=== PATIENT | female | born 1980 | race Caucasian/White ===

== ENCOUNTER 2024-09-15 00:31 | Day surgery (SDC) | payer OTHER, SELFPAY ==
[2024-09-12 12:32] VITALS: BMI 19.1
--- NOTE | 2024-09-12 12:32 | PC.NURSE ---
Report to the Outpatient Waiting Room, entrance under the green pavilion located off [facility], at time _1130_ on date _[phone]_. Planned Procedure Time: _130pm_.? Time changes happen often and if your time is changed the preop area will call you the afternoon before. - You and your visitor will be asked to self-screen and do not enter if you have any COVID symptoms. Please call surgeon if you need to reschedule. - A mask is optional within the hospital at this time. Patients may have clear liquids (water, carbonated beverages, clear teas, apple juice) until 3 hours prior to surgery with a maximum of 20 ounces. - No food from midnight until time of surgery and no smoking, or chewing tobacco (or any form of nicotine). No chewing gum, candy or mints. Take only the following medications with a SIP of water on the morning of surgery: ___None__ DO NOT STOP ANY OF YOUR OTHER PRESCRIPTION MEDICATIONS PRIOR TO SURGERY EXCEPT THE FOLLOWING Hold all vitamins and supplements for 3 days per anesthesiologist. Medications to discontinue per physician Date to take last dose Please no make-up, nail german, hairspray, perfume, deodorant, or body powder the day of surgery.? No jewelry (including any body piercings) or valuables the day of surgery, leave them at home.? Please take a shower or bath the night before, or the morning of, surgery with an antibacterial soap.? Wear comfortable, loose fitting clothing. - Jewelry must be removed prior to entering the operating room.? Rings and piercings that are not removed may be cut off. - The hospital will not accept responsibility for valuables.? - Please leave all valuables, including medications, at home the day of surgery. If you are going home after surgery, a licensed sales warehouse driver must drive you home.? - NO public transportation without another adult if you receive anesthesia. - We recommend that an adult stay with you for 24 hours following discharge. - We also recommend that you do not drive, make important decision, drink alcoholic beverages, or take any drugs that were not prescribed by your health care provider for at least 24 hours after your discharge time. Follow any additional instructions given to you from your surgeon. Telephone instructions given to __Amanda___and asked if any additional questions and then verbalized understanding. Patient advised to call surgeon office or pre surgery nurse liaison [phone] if any additional questions.
[2024-09-15] VITALS (16 sets, daily range): BP systolic 97–126; BP diastolic 53–82; PULSE 64–88; RESP 12–16; TEMP 36.2–36.8; O2SAT 98–100; BMI 19.4
--- OUTSIDE RECORDS SUMMARY | 2024-09-15 00:42 | XMS_ITS | Encounter Summary ---
Author Organization [facility] Address [address] [place] [id number] Phone Care Team Providers Care Car Hostler Name Role Phone Bennett Medina MD Primary Care Provider [phone] Reason for Visit * Reason Onset Date Comments Establish Care 06/25/2020 Encounter Details Date Type Department Care Team (Late st Contact Info) Description [facility] [address] [place] [address] Stephanie Chu MD [address] [place] [address] [address] [place], [place] [address] Establish Care Social History Tobacco Use Types Packs/Day Years Used Date Smoking Tobacco: Every Day Cigarettes Smokeless Tobacco: Never Alcohol Use Standard Drinks/Week Comments No 0 (1 standard drink = 0.6 oz pur e alcohol) Comments No Sex and Gender Information Value Date Recorded Sex Assigned at Not on file 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 Chu will take her on as a patient. She states she was told Dr. Chu was one of the only providers in the area to prescribe Suboxone. She takes it daily, and needs someone that prescribes it. TRONIC SYSTEM ENGINEER documented in this encounter Plan of Treatment Not on file documented as of this encounter Visit Diagnoses Not on filedocumented in this encounter Care Teams Car Hostler Relationship Specialty Start Date End Date Bennett Medina MD PCP - General Adult Medicine 11/08/14 documented as of this encounter
--- OUTSIDE RECORDS SUMMARY | 2024-09-15 00:43 | XMS_ITS | Clinical Summary ---
Author Organization [facility] Address [address] [place] [address] Phone Care Team Providers Care Air Turning Machine Feeder Name Role Phone Bennett Medina MD Primary Care Provider [phone] Allergies No known active allergies Medications HYDROcodone-acet aminophen (NORCO) 10-325 mg tablet Take 1 tablet by mouth Active Social History Tobacco Use Types Packs/Day Years Used Date Smoking Tobacco: Every Day Cigarettes Smokeless Tobacco: Never Alcohol Use Standard Drinks/Week Comments No 0 (1 standard drink = 0.6 oz pur e alcohol) Comments No Sex and Gender Information Value Date Recorded Sex Assigned at Not on file 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 Gender Identity Not on file Sexual Orientation Not on file Last Filed Vital Signs Vital Sign Reading Time Taken Comments Blood Pressure 101/62 11/09/2014 12:35 PM CDT Pulse 88 11/09/2014 12:35 PM CDT Temperature - - Respiratory Rate - - Oxygen Saturation - - Inhaled Oxygen Concentration - - Weight 55.3 kg (122 lb) 03/12/2015 11:39 AM PROPERTY INSURANCE AGENT Height 167.6 cm (5' 6) 03/12/2015 11:39 AM PROPERTY INSURANCE AGENT Body Mass Index 19.69 03/12/2015 11:39 AM PROPERTY INSURANCE AGENT Plan of Treatment Health Maintenance Due Date Last Done Comments MMR Vaccines (1 of 1 - Stand andrea series) 1981 Depression Screening 1992 Varicella Vaccines (1 of 2 - 13+ 2-dose series) 1993 DTaP/Tdap/Td Vaccines (1 - Tdap) 08/03/1999 Hepatitis B Vaccines (1 of 3 - 19+ 3-dose series) 08/03/1999 Pap Smear 2001 Cervical Cancer Screening 2010 HPV/Co-Testing 2010 Screening for Diabetes 08/03/2015 Breast Cancer Screening 2020 COVID-19 Vaccine (2023-2 5 season) 2023 Influenza Vaccine (Season Ended) 2024 HIB Vaccines Aged Out No longer eligi ble based on patient's age to complete this topic HPV Vaccines Aged Out No longer eligi ble based on patient's age to complete this topic Hepatitis A Vaccines Aged Out No long er eligible based on patient's age to complete this topic IPV Vaccines Aged Out No longer eligi ble based on patient's age to complete this topic Meningococcal B Vaccine Aged Out No l onger eligible based on patient's age to complete this topic Meningococcal Vaccine (ACWY) Aged Out No longer eligible based on patient's age to complete this topic Pneumococcal Vaccines Aged Out No ashli silverio eligible based on patient's age to complete this topic Rotavirus Vaccines Aged Out No longer eligible based on patient's age to complete this topic [place] Care Teams Air Turning Machine Feeder Relationship Specialty Start Date End Date Bennett Medina MD PCP - General Adult Medicine 11/08/14
--- OUTSIDE RECORDS SUMMARY | 2024-09-15 00:43 | XMS_ITS | Data Portability ---
Author Organization [facility], [address] [place] [address] [place] ([place]) Address [address] [place] [address] Care Team Providers Care Manager Managed Care Name Role Phone WILBUR, DAVID Primary Care Provider Assessment No assessment recorded. Plan of Treatment Reminders Order Date Submit Date Provider Last Modified By Organization Details Last Modified Time Details Appointments None recorded. Lab arthritis panel 2023 [facility], [address] [place] [address], [id number], 5 19:30:28 Referral None recorded. Procedures None recorded. Surgeries None recorded. Imaging None recorded. Medication Orders lamotrigine 100 mg tablet 2023 024 [address], [address], [place], [id number], 4 14:35:27 meloxicam 15 mg tablet 2023 024 AJ[address] Sal[address] [facility], [address], [place], [id number], 4 14:34:04 Patient TargetsNo targets recorded. Patient Instructions Encounter Date Encounter Id Patient Instructions Last Modified By Organization Details Last Modified Time 12/24/2023 [id number] Start daily anti-inflammatory Get arthritis panel and call with report, treat/refer as indicated Refill Lamotrigine today Patient given list of Mental Health professionals in our area, she will call to find new provider 30 minutes spent with patient [email or web address] Not available 12/24/2023 19:36:53 Reason for Referral None Reported. Results Created Date Observation Date Name Description Value Unit Range Abnormal Flag Note LastModifiedBy Organization Detail LastModifiedTime 07/14/1907/13/2024 arthr itis panel uric acid 4.2 mg/dL 2.3-6. 6 Not Available [facility] [address] [place] [address], [id number], 07/18/2024 14:08:39 07/14/19 25 07/13/2024 arthr itis panel sed rate 6 mm/HR 0 - 20 Not Available [facility] [address] [place] [address], [id number], 07/18/2024 14:08:39 07/14/19 25 07/13/2024 arthr itis panel rf <3.5 IU/mL <3.5-1 4 Not Available [facility] [address] [place] [address], [id number], 07/18/2024 14:08:39 07/14/19 25 07/13/2024 arthr itis panel ccp antibody, IgG <0.54 U/mL <=4.9 Not Available [facility] [address] [place] [address], [id number], 07/18/2024 14:08:39 07/14/19 25 07/18/2024 arthr itis panel arthritis panel Not Available [facility] [address] [place] [address], [id number], 07/18/2024 14:08:39 07/14/19 25 07/18/2024 arthr itis panel ANNIE screen NEGATI VE negati ve Perfo rmed by Bio-R ad enzym e immun oassa y Not Available [facility] [address] [place] [address], [id number], 07/18/2024 14:08:39 07/14/19 25 07/13/2024 arthr itis panel arthritis panel Not Available [facility] [address] [place] [address], [id number], 07/13/2024 20:34:42 07/14/19 25 07/13/2024 arthr itis panel uric acid 4.2 mg/dL 2.3-6. 6 Not Available [facility] [address] [place] [address], [id number], 07/13/2024 20:34:42 07/14/19 25 07/13/2024 arthr itis panel sed rate 6 mm/HR 0 - 20 Not Available [facility] [address] [place] [address], [id number], 07/13/2024 20:34:42 07/14/19 25 07/13/2024 arthr itis panel ANNIE screen PENDIN G Not Available [facility] [address] [place] [address], [id number], 07/13/2024 20:34:42 07/14/19 25 07/13/2024 arthr itis panel rf <3.5 IU/mL <3.5-1 4 Not Available [facility] [address] [place] [address], [id number], 07/13/2024 20:34:42 07/14/19 25 07/13/2024 arthr itis panel ccp antibody, IgG <0.54 U/mL <=4.9 Not Available [facility] [address] [place] [address], [id number], 07/13/2024 20:34:42 07/14/19 25 07/13/2024 arthr itis panel arthritis panel Not Available [facility] [address] [place] [address], [id number], 07/13/2024 19:47:51 07/14/19 25 07/13/2024 arthr itis panel uric acid 4.2 mg/dL 2.3-6. 6 Not Available [facility] [address] [place] [address], [id number], 07/13/2024 19:47:51 07/14/19 25 07/13/2024 arthr itis panel sed rate 6 mm/HR 0 - 20 Not Available [facility] [address] [place] [address], [id number], 07/13/2024 19:47:51 07/14/19 25 07/13/2024 arthr itis panel ANNIE screen PENDIN G Not Available [facility] [address] [place] [address], [id number], 07/13/2024 19:47:51 07/14/19 25 07/13/2024 arthr itis panel rf PENDIN G Not Available [facility] [address] [place] [address], [id number], 07/13/2024 19:47:51 07/14/19 25 07/13/2024 arthr itis panel ccp antibody, IgG PENDIN G Not Available [facility] [address] [place] [address], [id number], 07/13/2024 19:47:51 07/14/19 25 07/13/2024 arthr itis panel arthritis panel Not Available [facility] [address] [place] [address], [id number], 07/13/2024 19:30:28 07/14/19 25 07/13/2024 arthr itis panel uric acid PENDIN G Not Available [facility] [address] [place] [address], [id number], 07/13/2024 19:30:28 07/14/19 25 07/13/2024 arthr itis panel sed rate 6 mm/HR 0 - 20 Not Available [facility] [address] [place] [address], [id number], 07/13/2024 19:30:28 07/14/19 25 07/13/2024 arthr itis panel ANNIE screen PENDIN G Not Available [facility] [address] [place] [address], [id number], 07/13/2024 19:30:28 07/14/19 25 07/13/2024 arthr itis panel rf PENDIN G Not Available [facility] [address] [place] [address], [id number], 07/13/2024 19:30:28 07/14/19 25 07/13/2024 arthr itis panel ccp antibody, IgG PENDIN G Not Available [facility] [address] [place] [address], [id number], 07/13/2024 19:30:28 08/24/19 25 08/23/2024 MAMMO , scree ru, tomos ynthe sis, bilat eral This is a summar y report . The comple te report is availa ble in the patien t's medica l record . If you cannot access the medica l record , please contac t the sendusama ulloa organi rosa for a detail ed fax or copy. [facility] [address] [place] [address] Examin ation: BILATE RAL SCREEN ING MAMMOG MIRZA Exam Date: 08/24/19 3:07 PM Access ion: [id number] Clinic al Indica tion: 44 years of age female baseli ne screen ing. No person al or family histor y of breast cancer . Compar kari: Mammog mina dating back to None. Techni que: Digita l CC and MLO views. Tomosy nthesi s imagin g acquis ition. Study read with the assist ance of a Whimseybox er-aid ed detect ion system . Tissue densit y:The breast s are hetero geneou sly dense, which may obscur e small masses . Findin gs: Simila r hetero geneou sly dense fibrog landul ar patter n bilate rally. Benign calcif icatio ns. No enlarg ed lymph nodes. No suspic ious masses , malign ant appear ing calcif icatio ns, skin thicke ru or other abnorm alitie s are presen t. No findin gs of concer n with comput er-ass isted softwa re. IMPRES KATELIN: No featur es to sugges t malign kim. In the absenc e of clinic al sympto ms, return for annual screen ing due in one year. Recomm endati on: Routin e Screen ing Bilate ral. Assess ment: ACR BI-RAD S 2 - BENIGN FINDIN G(S) Ordere d By: LACY OJEDA KI Electr onical ly Signed By: Lacy Vega DO on 08/24/19 5:41 PM Interp reted By: Lacy Vega DO, 08/24/19 5:34 PM [email or web address] [facility] [address] [place], [address], 08/24/2024 12:23:16 Result Notes None recorded. Problems Name Problem SNOMED Code Status Onset Date Resolution Date Notes Provider Name and Address Organization Details Recorded Time Pain of bilateral hands 10307798940180 109 Active 2023 Mary William APRN, RESERVE OPERATOR [address] [place] [address], [phone] [place] [address] 14:32:57 Mood swings 26081003 Active 2023 Mary William APRN, RESERVE OPERATOR [address] [place] [address], [phone] [place] [address] 4 14:34:49 Problem Notes None recorded. Procedures Surgical History Date Name Laterality Status Provider Name and Address Organization Details Recorded Time Tonsillectomy completed [facility] 12/24/2023 14:11:14 Laparoscopy completed [facility] 12/24/2023 14:11:29 Oral surgery procedure completed [facility] 12/24/2023 14:11:39 Imaging Results None recorded. Procedure Notes None recorded. Medical Equipment None Reported. Allergies No known drug allergies Medications Name Sig Start Date Stop Date Status Note LastModified by Organization Details LastModified Time quetiapine 25 mg tablet TAKE 1 TABLET BY MOUTH ONCE DAILY AT BEDTIME active Not Available Not Available No t Available meloxicam 15 mg tablet Take 1 tablet every day by oral route for 30 days. 2023 active Not Available Not Available Not Avai lable dextroamphe tamine-amph etamine 10 mg tablet TAKE 1 TABLET BY MOUTH EVERY AFTERNOON active Not Available Not Available No t Available dextroamphe tamine-amph etamine 30 mg tablet TAKE 1 TABLET BY MOUTH EVERY MORNING active Not Available Not Available No t Available buspirone 10 mg tablet TAKE 2 TABLETS BY MOUTH THREE TIMES DAILY 12/23 completed Not Available Not Available Not Available hydroxyzine HCl 10 mg tablet TAKE 1 TABLET BY MOUTH THREE TIMES DAILY NEEDED FOR ITCHING 12/23 completed Not Available Not Available Not Available lamotrigine 100 mg tablet Take 1 tablet every day by oral route for 30 days. 2023 active Not Available Not Available Not Avai lable buspirone 15 mg tablet TAKE 1 TABLET BY MOUTH THREE TIMES DAILY active Not Available Not Available No t Available buprenorphi ne 8 mg-naloxone 2 mg sublingual film DISSOLVE 2 AND 1/2 FILMS UNDER THE TONGUE EVERY DAY FOR 15 DAYS active Not Available Not Available No t Available Trintellix 5 mg tablet TAKE 1 TABLET BY MOUTH ONCE DAILY WITH A 10MG TABLET TO EQUAL 15MG 12/23 completed Not Available Not Available Not Available Trintellix 10 mg tablet TAKE ONE-HALF TABLET BY MOUTH DAILY 12/23 completed Not Available Not Available Not Available Trintellix 20 mg tablet TAKE 1 TABLET BY MOUTH DAILY active Not Available Not Available No t Available Vitals Date Recorded Body height Body mass index (BMI) Body weight Body temperature Oxygen saturation Oxygen saturation in Arterial blood by Pulse oximetry Heart rate Systolic blood pressure Diastolic blood pressure Provider Name and Address Organization Details Last Updated DateTime 4 167.64 cm 20.3 kg/m2 30560.6 4 g 98.4 [degF] 98 % 98 % 81 /min 110 mm[Hg] 70 mm[Hg] Krystyna Petty [facility] 4 14:07:59 Social History None recorded. Functional Status None recorded. Mental Status None recorded. Family History Relationship Description Onset Age of this Age Resolved Age Notes LastModified by Organization Details LastModified Time Maternal Grandmother Malignant neoplasm of lung banner Not available 2023 14:10:41 Paternal Grandmother Heart disease banner Not available 2023 14:10:51 Father Leukemia banner Not available 12/24/2023 14:13:10 Medical History No medical history recorded. Gynecological HistoryNo gynecological history recorded. Obstetrics History GPAL:G 0 P 0 0 0 0 Immunizations Vaccine Type Date Status Note Provider Nam e and Address Organization Details Recorded Time Influenza, injectable,harsh valent, preservative free, pediatric 3 completed Krystyna Petty [facility] 12/24/2023 14:08:03 Influenza, recombinant, quadrivalent, PF 1 completed Krystynajose elias Petty [facility] 12/24/2023 14:08:03 COVID-19, mRNA, LNP-S, PF, 100 mcg/0.5mL dose or 50 mcg/0.25mL dose 1 completed Krystynajose elias Petty [facility] 12/24/2023 14:08:03 COVID-19, mRNA, LNP-S, PF, 100 mcg/0.5mL dose or 50 mcg/0.25mL dose 1 completed Krystyna Petty [facility] 12/24/2023 14:08:03 Tdap 6 completed Krystyna Petty [facility] 12/24/2023 14:08:04 Influenza, split virus, trivalent, preservative 6 completed Krystyna Petty [facility] 12/24/2023 14:08:04 Influenza, MDCK, trivalent, PF 4 completed Katie Turner [facility] 01/11/2024 17:37:40 Past Encounters Encounter ID Performer Location Encounter Start Date Encounter Closed Date Diagnosis/Indication Diagnosis SNOMED-CT Code Diagnosis ICD10 Code Diagnosis Note [id number] Mary William, RADIATOR REPAIRER, RESERVE OPERATOR [facility] ([place]) [address] [place] [address] 12/24/2023 14:00:54 12/24/2023 14:35:38 Pain of bilateral hands 3068229944 [id number] M79.641 M79.642 Mood swings 54589697 R45 .86 [id number] Lacy Shaffer MD [facility] ([place]) [address] [place] [address] 01/11/2024 16:54:29 01/12/2024 08:09:18 Vaccination needed 8011493737 57150 Z23 Health Concerns Section Related Observation LastModified by Organization Detai ls LastModified Time None Recorded Concern Status LastModified by Organization Details LastModified Time None Recorded Advance Directives Directive None Recorded Payers Insurance Date Sequence Insurance Name Policy Number Policy Ma Covered Member ID Ma Member ID Guarantor Name 08/31/2024 1 [place]PART[place] Kimberlee Bailey [id number] Kimberlee E Genaust 07/18/2024 1 [facility] (MEDICAID REPLACEMENT - HMO) [id number] Kimberlee Genaust [id number] Kimberlee E Genaust 07/20/2024 1 [facility] (HMO) [id number] Kimberlee Genaust [id number] Kimberlee E Genaust 01/24/2024 1 UNSPECIFIED REMIT PAYOR Kimberlee E Genaust Notes Date Note Type Note Provider Name and Address Organization Details Recorded Time 12/24/2023 text/html Right dominant patient presents with report of bilateral hand pain for the past year. Worse for the past month. States They are starting to swell on the endsAlso reports that My mood is everywhere Was seeing two providers at [facility] It was too hard to get to [place] for the appointments and they wouldn't do telehealth. I have to find someone new. States I am completely out of my Lamotrigine and I can tell my mood is everywhere Mary William APRN, RESERVE OPERATOR [address] [place] [address], [phone], [facility] 12/24/2023 19:37:28 OBGyn Episode No OBEpisode recorded.
[2024-09-15] MEDS: LACTATED RINGERS 1,000 ML 30 ML IV CONT ×2 (12:05→13:50)
[2024-09-15] MEDS: TRANEXAMIC ACID 1,000MG/ISO100 1,000 MG/100 ML BAG 200 MG IVPB (12:10)
[2024-09-15] MEDS: SCOPOLAMINE 1 MG PATCH 1 PATCH TRANSDERM (12:30)
--- NOTE | 2024-09-15 12:30 | WPDHPUPDATE1 ---
History and Physical Update Update Date/Time: 09/15/24 12:30 History and Physical has been reviewed, including an updated exam of the patient. There are NO changes in the patient's condition. Risks, benefits, and alternatives have been discussed and questions answered. Patient agrees to proceed with procedure.
--- NOTE | 2024-09-15 12:33 | P.PNAN_ITS ---
Anes - Initial Pre Proc Eval Procedure: Operation Date: 09/15/24 13:30 Proposed Procedures p Bilateral Breast Augmentation - Srinath Loza MD Date/Time: 09/15/24 12:33 Surgeon: Srinath Loza MD Pre Op Diagnosis: micromastia Patient Data Age: 44 Gender: F Height: 1.7 m Weight: 56.2 kg Last Vital Signs Temp 36.2 C L 09/15/24 11:40 Pulse 84 09/15/24 11:40 Resp 16 09/15/24 11:40 BP 97/53 L 09/15/24 11:40 Pulse Ox 100 09/15/24 11:40 O2 Del Method Room Air 09/15/24 11:40 Allergies Allergy/AdvReac Type Severity Reaction Status Date / Time No Known Allergies Allergy Verified 09/12/24 12:23 Home Medications ?Medication ?Instructions ?Recorded ?Confirmed ?Type buprenorphine 8 mg-naloxone 2 mg 1 film buccal TID 09/12/24 09/15/24 History sublingual film Patient hx anesthesia problems: none Family hx anesthesia problems: none Results Review: All pre-operative results and documents have been reviewed as part of the pre- operative evaluation. [facility] Past Medical History Medical History (Updated 09/15/24 @ 08:11 by Julio Galvez DO) Endometriosis Depression Anxiety Social History Social History Years smoked: 25 Smoking status: Current every day smoker Living arrangements: with family Spiritual care concerns: No Anes - Eval Final PreProcedure Day of Procedure 09/15/24 12:33 Patient weight: normal Heart: regular rate and rhythm Lungs: clear to auscultation Airway: Mallampati scale class II Neurological: alert and oriented Last oral intake: >/= 8 hours ASA classification: III Emergent: no Anesthetic plan: proceed Anesthesia type and monitoring: general LMA and standard monitoring Results Review: All pre-operative results and documents have been reviewed as part of the pre- operative evaluation. Informed Consent: The patient's anesthetic plan and its attendant risks and benefits were discussed with the patient/family/POA. Questions were solicited and answers provided to the satisfaction of the patient/family/POA.
--- NOTE | 2024-09-15 12:34 | W.PM.PROC2 ---
Procedure Note - Detailed Date of Procedure 09/15/24 Pre-op Diagnosis micromastia Post-op Diagnosis Same Procedure Performed Bilateral augmentation mammaplasty Surgeon Srinath Loza MD Anesthesia General Findings Bilateral dual plane 1 Devyn Peters SoftTouch 420cc Right: REF# [id number] SN [id number] Left: REF# [id number] SN [id number] Description of Procedure She is here today for bilateral breast augmentation. Previously and again today the risks, benefits, alternatives were discussed in extensive detail. I wanted her to be very realistic about the risks involved as well as expectations. We discussed aftercare and what to monitor for. Made sure answered all of her questions to her satisfaction today and consent was obtained. Marked in the preoperative holding area with their verification. The patient was taken to the operating room placed supine on the operating table. Anesthesia was provided by anesthesiology. A surgical time-out was taken. We cleansed the skin and 1% lidocaine and 0.25% Marcaine with epinephrine was used anesthetize as a field block. She was prepped and draped in a standard sterile fashion. Tegaderm nipple Chen were placed. A 15 blade used to make an incision along the inframammary fold. Dissection was continued at 45 degree angle until the chest wall as identified. I incised the pectoralis major along its inferior border and completely released the inferior border leaving the medial border intact. I created a subpectoral pocket in the appropriate dimensions based on our preoperative planning for the implant. I then copiously irrigated with saline solution and verified a strict hemostasis. Next the use a triple antibiotic and Betadine containing solution to irrigate the pocket. I washed my gloves with the triple antibiotic and Betadine solution. We washed the implant immediately upon opening it with this solution and only opened it when we needed it. I used implant funnel and no-touch technique. The implant was introduced into the pocket using the funnel. Having verified positioning of the implant this was closed using 2-0 PDS followed by 3-0 Monocryl in a running subcuticular 4-0 Monocryl followed by tissue glue. Fluffs and surgical bra were placed. Patient was awoke and taken to PACU without difficulty. All instrument sponge counts were correct at the end of the case. Estimated Blood Loss 20 Drains No Packing No Pathology None sent Complications No immediate complications Condition Stable Disposition PACU
[2024-09-15] MEDS: NACL 0.9% IRRIG POUR BOTTLE 900 ML, GENTAMICIN SULFATE INJ 160 MG, ceFAZolin 2 GM, POVI... IRRIGATION (12:45)
[2024-09-15] MEDS: LIDO 1%/EPINEPHRINE 1:100,000 50 ML VIAL 30 ML INFILTRATE (12:45)
[2024-09-15] MEDS: ceFAZolin 2 GM/D5W 50 ML 2 GM/50 ML BAG IVPB (12:45)
[2024-09-15] MEDS: BUPivacaine HCL 0.25% PF 30 ML VIAL INFILTRATE (12:45)
[2024-09-15] MEDS: MIDAZOLAM HCL (*CRX) 2 MG/2 ML VIAL IV PUSH (14:10)
[2024-09-15] MEDS: HYDROmorphone HCL INJ (*CRX) 1 MG/ML SYR IV PUSH (14:10)
[2024-09-15] MEDS: HALOPERIDOL LACTATE 5 MG/ML VIAL 3 MG IV PUSH (14:10)
[2024-09-15] MEDS: fentaNYL CITRATE INJ (*CRX) 100 MCG/2 ML VIAL 25 MCG IV PUSH ×6 (15:36→16:01)
== END 2024-09-15 17:55 | disposition home or self-care (01) ==
PROVIDERS: Visit Provider Surgery Plastic and Reconstructive Surgery
PROC: (CPT 19325; principal; 2024-09-15 13:30)
DX: Z41.1 Encounter for cosmetic surgery (principal); N64.82 Hypoplasia of breast
CPT/HCPCS: 19325; A9270; J0690; J1100; J1171; J1200; J1580; J1630; J2003; J2004; J2250; J2405; J2704; J3010; J7120